=== PATIENT | male | born 1970 | race African-American/Black ===

== ENCOUNTER 2023-10-25 03:09 | Emergency (ER) | payer MEDICARE, MEDICAID ==
[~2023-10-25] VITALS: Ht 182.9 cm; Wt 103.0 kg
[2023-10-25 03:52] VITALS: O2SAT 99
[2023-10-25] MEDS ORDERED: NAP5EC MT (05:58)
[2023-10-25] MEDS: KETOROLAC 60MG/2ML VIAL IM ONE (06:17)
[2023-10-25 06:20] VITALS: BP 132/80; PULSE 86; RESP 18; TEMP 98.2
== END 2023-10-25 06:25 | disposition home or self-care (01) ==
LOC: ER 03:09
DX: S46.911A Strain of unspecified muscle, fascia and tendon at shoulder and upper arm level, right arm, initial encounter (principal); I10 Essential (primary) hypertension; X58.XXXA Exposure to other specified factors, initial encounter; Y93.89 Activity, other specified; Y92.89 Other specified places as the place of occurrence of the external cause; Y99.8 Other external cause status
CPT/HCPCS: 99283; 96372; J1885; A4565